=== PATIENT | male | born 1970 | race Caucasian/White ===

== ENCOUNTER 2021-12-24 14:55 | Emergency (ER) | payer OTHER, SELFPAY ==
[2021-12-24 15:04] VITALS: BP 148/91; PULSE 108; RESP 18; TEMP 36.8; O2SAT 99; BMI 27.3
--- NOTE | 2021-12-24 15:13 | ED_ITS ---
HPI - Eye Problem <LEEANN Hawley - Last Filed: 12/24/21 15:44> General Chief complaint: Eye Problems Stated complaint: Chlorine in eye Time Seen by Provider: 12/24/21 15:03 Source: patient Mode of arrival: Ambulatory History of Present Illness HPI Narrative: This is a 51-year-old male who presents to the emergency department after he was working on site when a fan fell down and splashed 13% bleach and it got into patient's left eye. He states that he irrigated his eye for 15 minutes after it happened, it felt better afterwards. He now endorses a gritty sensation. Patient denies any vision changes, denies any eye pain, states that it feels like a he has some dirt in his left eye and it is tearing but denies any other symptom. He states that his last tetanus was within the last 10 years, he has not taking any medication prior to arrival, states that it is painful about a seven to 8/10. Related Data Allergies Allergy/AdvReac Type Severity Reaction Status Date / Time No Known Drug Allergies Allergy Verified 12/24/21 15:04 Review of Systems <LEEANN Hawley - Last Filed: 12/24/21 15:44> Review of Systems Narrative: General: denies fever, chills, malaise, sweats, fatigue Head/Neck: denies headache, neck pain, dizziness Eyes: denies visual changes, endorses left eye pain and gritty sensation Cardio: denies chest pain, palpitations, edema Respiratory: denies dyspnea, cough, orthopnea GI: denies abdominal pain, nausea, vomiting, or diarrhea : denies dysuria, hematuria, urinary retention, frequency or incontinence MSK: denies joint pain, muscle weakness Skin: denies rash, itching, skin lesions or other Neuro: denies numbness, tingling Patient History <LEEANN Hawley - Last Filed: 12/24/21 15:44> Social History Smoking Status: Never smoker Smoking Status: Never smoker alcohol intake frequency: holidays/special occasions only Substance Use Type: does not use Exam <LEEANN Hawley - Last Filed: 12/24/21 15:44> Narrative Exam Narrative: Independently reviewed vitals signs and nursing notes. General: Awake, alert, nontoxic, no cardiorespiratory distress Head/Neck: Atraumatic, neck supple Eyes: EOMI, conjunctiva normal on right, left conjunctiva is injected with mild scleral injection, tearing, fluorescein exam of left eye Nose: nares patent, no rhinorrhea Mouth/Throat: moist mucus membranes, posterior pharynx without erythema or lesion Cardio: Regular rate and rhythm, no peripheral edema Respiratory: respirations unlabored without wheezing, stridor, or rales. No retractions, hypoxia or tachypnea MSK: Moves all extremities, neurovascularly intact, range of motion without deficit Skin: Normal capillary refill, no rash Neuro: Normal speech and cognition, normal gait Initial Vital Signs Initial Vital Signs: Vital Signs Temperature 98.3 F 12/24/21 15:04 Pulse Rate 108 H 12/24/21 15:04 Respiratory Rate 18 12/24/21 15:04 Blood Pressure 148/91 H 12/24/21 15:04 Pulse Oximetry 99 12/24/21 15:04 <Kristopher Stauffer DO - Last Filed: 12/24/21 16:02> Initial Vital Signs Initial Vital Signs: Vital Signs Temperature 98.3 F 12/24/21 15:04 Pulse Rate 108 H 12/24/21 15:04 Respiratory Rate 18 12/24/21 15:04 Blood Pressure 148/91 H 12/24/21 15:04 Pulse Oximetry 99 12/24/21 15:04 Course <LEEANN Hawley - Last Filed: 12/24/21 15:44> Orders Ordered: Discontinued Medications Erythromycin (Erythromycin Ophth 1 Gm Oint) 1 applic EYE-LEFT NOW ONE Stop: 12/24/21 15:09 Last Admin: 12/24/21 15:28 Dose: 1 applic Documented by: BARRERA Fluorescein Sodium (Fluorescein 1 Mg Strip) 1 mg EYE-LEFT NOW ONE Stop: 12/24/21 15:09 Last Admin: 12/24/21 15:28 Dose: 1 mg Documented by: BARRERA Ketorolac Tromethamine (Ketorolac 30 Mg/Ml Vial) 15 mg IM NOW ONE Stop: 12/24/21 15:09 Last Admin: 12/24/21 15:28 Dose: 15 mg Documented by: BARRERA Proparacaine HCl (Proparacaine 0.5% Ophth [place]) 1 drops EYE-LEFT NOW ONE Stop: 12/24/21 15:09 Last Admin: 12/24/21 15:27 Dose: 1 drop Documented by: BARRERA Vital Signs Vital signs: Vital Signs - 8 hr 12/24/21 15:04 Temperature 98.3 F Pulse Rate 108 H Respiratory Rate 18 Blood Pressure 148/91 H Pulse Oximetry 99 <Kristopher Stauffer DO - Last Filed: 12/24/21 16:02> Orders Ordered: Discontinued Medications Erythromycin (Erythromycin Ophth 1 Gm Oint) 1 applic EYE-LEFT NOW ONE Stop: 12/24/21 15:09 Last Admin: 12/24/21 15:28 Dose: 1 applic Documented by: BARRERA Fluorescein Sodium (Fluorescein 1 Mg Strip) 1 mg EYE-LEFT NOW ONE Stop: 12/24/21 15:09 Last Admin: 12/24/21 15:28 Dose: 1 mg Documented by: BARRERA Ketorolac Tromethamine (Ketorolac 30 Mg/Ml Vial) 15 mg IM NOW ONE Stop: 12/24/21 15:09 Last Admin: 12/24/21 15:28 Dose: 15 mg Documented by: BARRERA Proparacaine HCl (Proparacaine 0.5% Ophth [place]) 1 drops EYE-LEFT NOW ONE Stop: 12/24/21 15:09 Last Admin: 12/24/21 15:27 Dose: 1 drop Documented by: BARRERA Vital Signs Vital signs: Vital Signs - 8 hr 12/24/21 15:04 Temperature 98.3 F Pulse Rate 108 H Respiratory Rate 18 Blood Pressure 148/91 H Pulse Oximetry 99 MDM - Eye Problem <LEEANN Hawley - Last Filed: 12/24/21 15:44> Lab Data Labs: Point of Care Testing pH,Tear Film,POC Measurement pH 7 Bilateral eyes PH are both seven MDM Narrative Medical decision making narrative: 51 year old male presents to the emergency department after a work related injury in which a fan fell down striking a container of 13% bleach which splashed into patient's left eye. Patient's visual acuity was better in left than his right, he does not wear contact lenses or corrective lenses. PH of bilateral eyes was tested and they were both seven. Fluorescein stain exam of left eye with Wood's lamp does not show any corneal abrasion, patient irrigated his eye for 15 minutes on the job site, states that the pain improved afterwards, but he still has a slightly gritty sensation. He does not have any vision changes, denies eye pain with eye movement, states that his pain is t olerable, tetanus was within the last 10 years. He was given a tetanus vaccination, erythromycin ointment to use topically in his eye 3-4 times daily for the next few days until the grading is sensation improved. He was given Barbara babin contact information for Ophthalmology if he has any vision changes worsening, or any eye pain that is progressive. Patient understands to return to the emergency department for any new or worsening symptoms, [id number]. Encourage patient to use only artificial tears without any antihistamines or anything for red eyes. Or to use the erythromycin ointment only. Patient was given Toradol for pain, encouraged to use Tylenol or ibuprofen as needed for his pain for the next few days. Patient is appropriate and amenable to discharge home. Vital signs are stable on repeat examination is unremarkable. Patient has been informed of results. Patient has been given strict return to ER precautions for any new or worsening symptoms. Patient understands to follow up closely with outpatient providers as instructed. Patient understands plan and agrees to discharge home. All questions and concerns answered at this time. <Kristopher Stauffer, DO - Last Filed: 12/24/21 16:02> Lab Data Labs: Point of Care Testing pH,Tear Film,POC Measurement pH 7 Discharge Plan Departure Patient Disposition: Home Clinical Impression: Chemical burn of left eye, Work related injury Instructions: DI for Chemical Eye Burn Activity Restrictions/Additional Instructions: *You have been diagnosed with a chemical burn to your left eye without corneal abrasion or ulceration. Please use this ointment 3-4 times daily for the next five days or as long as you have a gritty sensation. You may use a non antibiotic version of eye lubricant available [id number] if that is helpful also, or if you use any eyedrops, make sure they are regular saline without anything for red eyes including antihistamine or others just natural tears currently. Thank you for trusting us with your care, I hope this gets better soon, [id number]. If you have any vision changes or deficit over the next few days, please follow-up with Dr. Babin from Ophthalmology, user claim number and follow-up with her or a regular eye doctor. You for your time, I hope you feel better soon. Please use Tylenol or ibuprofen as needed for your pain, do not take any ibuprofen today as have a strong dose of a similar medicine. *What to do: *Please continue to take your regular medications as directed. [ ] New medication prescriptions sent to your pharmacy: [ ] [ ] New medication written as a paper prescription [x ] No new medications given *Please follow up with your primary care provider in 2-3 days, call for an appointment. Let them know you were seen in the Emergency Department and that we asked that you be seen for follow-up. We will electronically transmit a record of today's note if your PCP is in our system *If you do not have a primary care provider please contact [phone] [facility] with one of the [facility] primary care providers. *Return to Emergency Department if you should have any new, worsening or concerning symptoms, such as [fever greater than 101F, chills, worsening pain, persistent vomiting or other bothersome symptoms] Referrals: Barbara Babin MD [Physician] - Miscellaneous,MD Kelly [Primary Care Provider] - Visit Report Forms: Patient Portal/API <Kristopher Stauffer DO - Last Filed: 12/24/21 16:02> [facility] Dr Stauffer Co-Sign Statement: I was available for consultation during this patient's emergency department visit. This chart is signed by myself for administrative purposes only. I did not have direct contact with this patient during this visit. They were seen independently by the APC.
--- NOTE | 2021-12-24 15:17 | PC.NURSE ---
ph right eye 7 ph left eye 7
[2021-12-24] MEDS: PROPARACAINE 0.5% OPHTH SOL 1 DROPS EYE-LEFT (15:27)
[2021-12-24] MEDS: FLUORESCEIN 1 MG STRIP EYE-LEFT (15:28)
[2021-12-24] MEDS: ERYTHROMYCIN OPHTH 1 GM OINT 1 APPLIC EYE-LEFT (15:28)
[2021-12-24] MEDS: KETOROLAC 30 MG/ML VIAL 15 MG IM (15:28)
== END 2021-12-24 15:45 | disposition home or self-care (01) ==
PROVIDERS: Emergency Provider Nurse Practitioner Critical Care Medicine
DX: T26.92XA Corrosion of left eye and adnexa, part unspecified, initial encounter (principal); T54.91XA Toxic effect of unspecified corrosive substance, accidental (unintentional), initial encounter; Y99.0 Civilian activity done for income or pay
CPT/HCPCS: 96372; 99283; J1885